=== PATIENT | male | born 1990 | race African-American/Black ===

== ENCOUNTER 2017-12-26 17:02 | Outpatient (CLI) | payer OTHER ==
--- NOTE | 2017-12-27 09:15 | Ultrasound Report ---
Procedure Date: 12/26/2017 Accession Number: [id number] / [id number] Procedure: US - Testicle CPT Code: FULL RESULT: EXAM: Testicle DATE: 12/26/2017 7:04 PM CLINICAL HISTORY: SCROTAL MASS COMPARISON: None. TECHNIQUE: Real-time scanning was performed with static images obtained, including color-flow. FINDINGS: Right: Testis: 4.7 x 2.2 x 3.5 cm. Limited microlithiasis and normal blood flow by color Doppler. No mass. Epididymis: 1.5 x 0.8 x 2.0 cm. Contains a epididymal head cyst with mobile debris measuring up to 0.7 cm. Hydrocele: Complex hydrocele, small in volume. Varicocele: None. Left: Testis: 4.2 x 2.3 x 3.4 cm. Limited microlithiasis and normal blood flow by color Doppler. No mass. Epididymis: 2.1 x 0.9 x 1.4 cm. Normal size and echotexture. No mass or abnormal blood flow. Hydrocele: Complex hydrocele. Varicocele: None. IMPRESSION: Limited bilateral testicular microlithiasis. In the absence of risk factors for germ cell tumors, there is no associated increased risk of testicular cancer in asymptomatic individuals. Bilateral small complex hydrocele. The reported scrotal mass may relate to the 0.7 cm complex right epididymal head cyst, a benign finding. [facility]
== END 2017-12-26 17:03 | disposition home or self-care (01) ==
LOC: DI 17:02
PROVIDERS: ATTEND Family Medicine
DX: N50.89 Other specified disorders of the male genital organs (principal)
CPT/HCPCS: 76870